=== PATIENT | male | born 1950 | race African-American/Black ===

== ENCOUNTER → 2018-09-23 | Outpatient (CLI) | payer MEDICARE ==
--- NOTE | 2018-09-23 13:13 | PCVCIMAG ---
APPROVED REPORT Study performed: 09/23/2018 09:00:40 Exam: Stress Echocardiogram Indication: Hypertension, Chest pain Patient Location: Echo lab Stress Nurse: Azucena aPlma RN Status: routine Ht: 5 ft 6 in HR: 86 bpm BP: 110/70 mmHg Rhythm: NSR Medical History Medical History: HTN Procedure The patient underwent an Exercise Stress Test using the Ilan Protocol. Blood pressure, heart rate, and EKG were monitored. An Echocardiogram was performed by care technician in four stages in quad fashion. At peak stress, four selected images were obtained and placed side by side with resting images for comparison. Stress Test Details Stress Test: Exercise stress testing was performed using a Ilan protocol. HR Resting HR: 86 bpmMax Heart Rate (APMHR): 151 bpm Max HR Achieved: 176 bpmTarget HR (85% APMHR): 128 bpm % of APMHR: 116 Recovery HR: 114 bpm HR response to stress: Normal HR response to stress BP Resting BP: 110/70 mmHg Max BP: 160/70 mmHg Recovery BP: 128/74 mmHg BP response to stress: Normal blood pressure response to stress. ECG Resting ECG: Sinus Rhythm Stress ECG: Clear Recovery ECG: Sinus Rhythm Clinical Reason for Termination: Maximal effort Exercise duration: 9 min 36 sec Highest Stage Achieved: Stage 4: 4.2 mph at 16% grade. Exercise capacity: 12.00 METs Overall Exercise Capacity for Age: Normal Pre-Stress Echo The resting Echocardiogram showed normal left ventricular contractility with an estimated Ejection Fraction of about >55%. Normal wall motion in all segments on baseline images. Post-Stress Echo The stress Echocardiogram showed normal left ventricular contractility with an estimated Ejection Fraction of about 60-65%. Normal augmentation of wall motion in all segments on post stress images. Clinical No clinical or ECG evidence for ischemia. Conclusion Clinical Response: Non-ischemic Exercise Capacity: Average Stress ECG Response: Non-ischemic Stress Echo Images: Non-ischemic The left ventricle is normal in size and wall thickness in both the rest and stress images. Other Information Study Quality: Adequate <Conclusion> The left ventricle is normal in size and wall thickness in both the rest and stress images.
== END | disposition home or self-care (01) ==
LOC: PCVCIMAG 09:01
PROVIDERS: ATTEND Internal Medicine
DX: R07.9 Chest pain, unspecified (principal); E78.5 Hyperlipidemia, unspecified
CPT/HCPCS: 93325; 93351